=== PATIENT | male | born 1985 | race Caucasian/White ===

== ENCOUNTER 2020-07-16 11:17 | Emergency (ER) | payer MEDICAID ==
[~2020-07-16] VITALS: Ht 172.7 cm; Wt 107.5 kg
[2020-07-16 11:22] VITALS: Ht 172.7 cm; Wt 107.5 kg
[2020-07-16 11:54] LABS: microscopic required? NO
[2020-07-16 11:59] LABS: urine erythrocyte NEGATIVE (NEGATIVE)
[2020-07-16 12:03] LABS: BASOPHIL % 1.2 % (0.2-1.5); PLATELET COUNT 196 x10^3mcL (152-348); RED CELL DISTRIBUTION WIDTH 13.4 % (12.1-16.2)
[2020-07-16 12:11] LABS: CALCIUM 9.2 mg/dL (8.5-10.1); CARBON DIOXIDE 29.6 mmol/L (21-32); CHLORIDE SERUM 99 mmol/L (98-107); CREATININE SERUM 0.8 mg/dL (0.7-1.3); GFR1 > 60 mL/min; GLUCOSE SERUM 113 mg/dL (74-106); POTASSIUM SERUM 3.9 mmol/L (3.5-5.1); SODIUM SERUM 135 mmol/L (136-145)
[2020-07-16 12:16] LABS: ALBUMIN 4.3 g/dL (3.4-5.0); ALKALINE PHOSPHATASE 78 U/L (46-116); ALT/SGPT 63 U/L (16-63); AST/SGOT 34 U/L (15-37); BILIRUBIN TOTAL 0.5 mg/dL (0.20-1.00); TOTAL PROTEIN, SERUM 7.8 g/dL (6.4-8.2)
[2020-07-16] MEDS ORDERED: MOT800 PO (13:27)
[2020-07-16 14:10] VITALS: BP 131/88
== END 2020-07-16 14:10 | disposition home or self-care (01) ==
LOC: ED 11:17
PROVIDERS: Specialist
DX: N43.3 Hydrocele, unspecified (principal); R07.89 Other chest pain
CPT/HCPCS: J1885